=== PATIENT | male | born 1965 | race Caucasian/White ===

== ENCOUNTER → 2017-11-18 08:23 | Outpatient (CLI) | payer BC, SELFPAY ==
--- NOTE | 2017-11-18 14:39 | DI.REPORT_ITS ---
SYMPTOMS/DIAGNOSIS: ACQUIRED LUMBOSACRAL SPONDYLOLYSIS, M43.07 LUMBOSACRAL SPINE: Five views were obtained. There is a hip replacement in position on the left. There is bilateral L5 spondylolysis with spondylolisthesis of L5 on S1 estimated at 25% of the vertebral width, grossly unchanged from previous MR of October 2013. There is vacuum disc phenomenon of a narrowed intervertebral disc at this level. Otherwise, intervertebral discs are unremarkable. Mild hypertrophic spurring and vertebral endplates are noted in lower thoracic and upper lumbar spine. No compression fractures seen. CONCLUSION: Degenerative changes and chronic spondylolysis/spondylolisthesis at L5-S1 as described above.
== END ==
PROVIDERS: PCP Family Medicine; Visit Provider Family Medicine
DX: M43.07 Spondylolysis, lumbosacral region (principal); M43.17 Spondylolisthesis, lumbosacral region
CPT/HCPCS: 72110

== ENCOUNTER 2017-12-13 00:36 | Outpatient (CLI) | payer BC, SELFPAY ==
--- NOTE | 2017-12-13 09:27 | DI.MRI_ITS ---
SYMPTOM/DIAGNOSIS: LUMBOSACRAL SPONDYLOSIS m43.07, FORAMINAL STENOSIS, LBP MRI LUMBAR SPINE: Comparison is made with 20 October 2013. T1, T2 and STIR sagittal, T1 T2 axial sequences were performed. The conus medullaris appears intact. The aorta is normal in diameter. There is mild bulging of the T-12 L-1 disc. There is now mild loss of height of the L1-2 disc with mild concentric bulging. There are small end plate osteophytes projecting anteriorly. Schmorl's nodes area seen at the inferior end plate of L-1. At L2-3, there is mild broad based disc bulging. At L3-4, there is no change in disc bulging which is eccentric toward the right causing right neural foraminal narrowing. At L4-5, there is stable appearance of a small central disc herniation. There are facet degenerative changes, and mild central canal stenosis. There is mild right neural foraminal narrowing. At L5-S1 there is again noted to be Grade 1 spondylolisthesis and L5 spondylolysis as well as degenerative signal changes in the end plates. There is severe bilateral neural foraminal narrowing, unchanged. IMPRESSION: Mild interval worsening of degenerative disc changes when compared with the previous exam.
== END 2017-12-13 00:56 ==
PROVIDERS: PCP Family Medicine; Visit Provider Family Medicine
DX: M47.817 Spondylosis without myelopathy or radiculopathy, lumbosacral region (principal); M51.37 Other intervertebral disc degeneration, lumbosacral region; M54.5 Low back pain
CPT/HCPCS: 72148

== ENCOUNTER 2018-05-30 15:51 | Outpatient (REF) | payer BC, SELFPAY ==
[2018-05-30 19:02] LABS: HCT 40.5 % (40.0-50.0); HGB 13.9 g/dL (13.5-17.5); Mean Corp. HGB Concentration 34.3 g/dL (32.0-36.0); Mean Corpuscular Hemoglobin 30.5 pg (27.0-33.0); Mean Corpuscular Volume 88.8 fL (80-95); Mean Platelet Volume 11.4 fL (8.0-11.0); Platelet Count 191 x1000/uL (130-400); RBC 4.56 m/cumm (4.50-6.00); White Blood Cell Count 5.22 k/cumm (4.4-10.8)
[2018-05-30 20:53] LABS: Iron 77 ug/dL (50-175); Total Iron Binding Capacity 321 ug/dL (250-450); Transferrin Sat 24 % (20-55)
[2018-05-30 21:06] LABS: ALT 44 U/L (12-78); AST 29 U/L (15-37); Albumin 4.1 g/dL (3.4-5.0); Alkaline Phosphatase 80 U/L (46-116); Anion Gap 6.7 mmol/L (3-11); BUN 20 mg/dL (7-18); Bilirubin, Total 0.5 mg/dL (0.2-1.0); CO2 29.3 mmol/L (21.0-32.0); CREATININE 1.29 mg/dL (0.70-1.30); Calcium 9.1 mg/dL (8.5-10.1); Chloride 103 mmol/L (98-107); Estimated GFR 58.96 (mL/min/1.73m2); Ferritin 133 ng/mL (8-388); Glucose 82 mg/dL (70-100); Potassium 3.8 mmol/L (3.5-5.1); Sodium 139 mmol/L (136-145); Total Protein 7.7 g/dL (6.4-8.2)
== END 2018-05-30 16:11 ==
LOC: NCHCN 15:51
PROVIDERS: PCP Family Medicine; Visit Provider Nurse Practitioner Family
DX: R42 Dizziness and giddiness (principal); H53.8 Other visual disturbances; R41.89 Other symptoms and signs involving cognitive functions and awareness
CPT/HCPCS: 80053; 85027; 82728; 83540; 83550

== ENCOUNTER 2020-01-15 13:50 | Outpatient (REF) | payer BC, SELFPAY ==
[2020-01-15 19:13] LABS: Anion Gap 10.5 mmol/L (3-11); BUN 14 mg/dL (7-18); CO2 28.5 mmol/L (21.0-32.0); CREATININE 1.22 mg/dL (0.70-1.30); Calcium 9.1 mg/dL (8.5-10.1); Chloride 101 mmol/L (98-107); Glucose 78 mg/dL (74-106); Potassium 3.8 mmol/L (3.5-5.1); Sodium 140 mmol/L (136-145); Vitamin B12 770 pg/mL (193-986)
== END 2020-01-15 14:10 ==
LOC: NCHCN 13:50
PROVIDERS: PCP Family Medicine; Visit Provider Family Medicine
DX: Z00.00 Encounter for general adult medical examination without abnormal findings (principal); R41.89 Other symptoms and signs involving cognitive functions and awareness; I10 Essential (primary) hypertension
CPT/HCPCS: 80048; 82607; 84443

== ENCOUNTER 2021-01-15 16:38 | Outpatient (REF) | payer BC, SELFPAY ==
[2021-01-15 20:13] LABS: Anion Gap 12.7 mmol/L (3-11); BUN 16 mg/dL (7-18); CO2 25.3 mmol/L (21.0-32.0); CREATININE 1.2 mg/dL (0.70-1.30); Calcium 9.1 mg/dL (8.5-10.1); Calculated LDL 146 mg/dL (<100); Chloride 100 mmol/L (98-107); Cholesterol 224 mg/dL (<200); Glucose 94 mg/dL (74-106); HDL Cholesterol 47 mg/dL (40-60); Potassium 3.7 mmol/L (3.5-5.1); Sodium 138 mmol/L (136-145); Triglyceride 156 mg/dL (<150)
== END 2021-01-15 16:39 | disposition home or self-care (01) ==
LOC: NCHCN 16:38
PROVIDERS: PCP Family Medicine; Visit Provider Family Medicine
DX: I10 Essential (primary) hypertension (principal); Z00.00 Encounter for general adult medical examination without abnormal findings
CPT/HCPCS: 80048; 80061

== ENCOUNTER 2022-01-28 18:27 | Outpatient (REF) | payer BC, SELFPAY ==
[2022-01-28 15:34] LABS: BUN 18 mg/dL (7-18); CREATININE 1.2 mg/dL (0.70-1.30); Calcium 9.3 mg/dL (8.5-10.1); Chloride 104 mmol/L (98-107); Estimated GFR 71.86 (mL/min/1.73m2); Glucose 91 mg/dL (74-106); Magnesium 1.9 mg/dL (1.8-2.4); Sodium 139 mmol/L (136-145)
== END 2022-01-28 18:28 | disposition home or self-care (01) ==
LOC: NCHCN 18:27
PROVIDERS: PCP Family Medicine; Visit Provider Family Medicine
DX: Z00.00 Encounter for general adult medical examination without abnormal findings (principal); R25.2 Cramp and spasm
CPT/HCPCS: 80048; 83735

== ENCOUNTER 2022-11-25 11:12 | Outpatient (REF) | payer BC, SELFPAY ==
[2022-11-25 17:08] LABS: Abs Immature Grans 0.01 10^3/uL (0.0-0.06); Absolute Basophil Count 0.01 10^3/uL (0.0-0.2); Absolute Eosinophil Count 0.05 10^3/uL (0.0-0.7); Absolute Lymphocyte Count 1.05 10^3/uL (1.2-3.4); Absolute Monocyte Count 0.42 10^3/uL (0.1-0.8); Absolute Neutrophil Count 2.31 10^3/uL (1.2-6.7); Basophils % 0.3; Eosinophils % 1.3; HCT 43.5 % (40.0-50.0); HGB 14.8 g/dL (13.5-17.5); Immature Grans % 0.3; Lymphocytes % 27.3; MCV 91 fL (80-95); MPV 11.7 fL (8.0-11.0); Monocytes % 10.9; Neutrophils % 59.9; Platelet Count 198 10^3/uL (130-400); RBC 4.78 10^6/uL (4.36-5.78); RDW 11.9 % (11.8-14.1); RDW-SD 39.7 fL; WBC 3.85 10^3/uL (4.4-10.8)
[2022-11-25 17:36] LABS: ESR 8 mm/hr (0-20)
[2022-11-25 17:53] LABS: ALT 150 U/L (16-63); AST 84 U/L (15-37); Albumin 4.1 g/dL (3.4-5.0); Alkaline Phosphatase 99 U/L (46-116); Anion Gap 7.4 mmol/L (3-11); BUN 20 mg/dL (7-18); Bilirubin, Total 0.8 mg/dL (0.2-1.0); CO2 30.6 mmol/L (21.0-32.0); CREATININE 1.1 mg/dL (0.70-1.30); Calcium 9.4 mg/dL (8.5-10.1); Chloride 101 mmol/L (98-107); Estimated GFR 79.28 (mL/min/1.73m2); Glucose 87 mg/dL (74-106); Potassium 3.9 mmol/L (3.5-5.1); Sodium 139 mmol/L (136-145); Total Protein 7.5 g/dL (6.4-8.2)
== END 2022-11-25 11:13 | disposition home or self-care (01) ==
LOC: NCHCN 11:12
PROVIDERS: PCP Family Medicine; Visit Provider Family Medicine
DX: R53.81 Other malaise (principal); R53.83 Other fatigue; R79.89 Other specified abnormal findings of blood chemistry
CPT/HCPCS: 80053; 85652; 85025

== ENCOUNTER 2022-12-14 12:34 | Outpatient (REF) | payer BC, SELFPAY ==
[2022-12-14 15:04] LABS: Abs Immature Grans 0.02 10^3/uL (0.0-0.06); Absolute Basophil Count 0.02 10^3/uL (0.0-0.2); Absolute Eosinophil Count 0.09 10^3/uL (0.0-0.7); Absolute Monocyte Count 0.45 10^3/uL (0.1-0.8); Absolute Neutrophil Count 2.47 10^3/uL (1.2-6.7); Basophils % 0.4; Eosinophils % 1.9; HCT 42.2 % (40.0-50.0); HGB 14.5 g/dL (13.5-17.5); Immature Grans % 0.4; Lymphocytes % 35.8; MCHC 34.4 % (32.0-36.0); MCV 90 fL (80-95); MPV 11.9 fL (8.0-11.0); Monocytes % 9.5; Platelet Count 208 10^3/uL (130-400); RBC 4.67 10^6/uL (4.36-5.78); RDW 11.9 % (11.8-14.1); RDW-SD 39.4 fL; WBC 4.75 10^3/uL (4.4-10.8)
[2022-12-14 15:31] LABS: ALT 61 U/L (16-63); AST 35 U/L (15-37); Albumin 4.1 g/dL (3.4-5.0); Alkaline Phosphatase 92 U/L (46-116); Bilirubin, Direct 0.1 mg/dL (0.0-0.2); Bilirubin, Total 0.4 mg/dL (0.2-1.0); Total Protein 7.5 g/dL (6.4-8.2)
== END 2022-12-14 12:35 | disposition home or self-care (01) ==
LOC: NCHCN 12:34
PROVIDERS: PCP Family Medicine; Visit Provider Family Medicine
DX: D70.9 Neutropenia, unspecified (principal); R74.8 Abnormal levels of other serum enzymes
CPT/HCPCS: 80076; 85025

== ENCOUNTER 2022-12-16 08:28 | Day surgery (SDC) | payer BC, SELFPAY ==
--- NOTE | 2022-12-16 07:02 | PGE_ITS ---
Date of Service Date of service: 12/16/22 Time of Service: 10:13 Assessment and Plan Assessment and plan (1) GERD (gastroesophageal reflux disease): Status: Chronic Assessment and plan: Sean is a pleasant 57-year-old gentleman who had a bout of hematemesis after drinking too much.? I suspect he had a Melissa-Jacob tear.? He continues to have some GERD symptoms which are being helped by the as omeprazole.? I think that he does have an indication for an upper endoscopy to make sure that the Melissa- Jacob tear is healing.? At that time I can also look for ulcers or any other signs of inflammation in his stomach.? He did tell me that usually by the end of the day he feels like the as omeprazole is not in his system anymore and he starts to have more difficulty.? I have recommended that he start taking famotidine 20 mg at nighttime and hopefully that will help him until after his upper endoscopy and I have a better idea of what is going on.? We reviewed the pathophysiology of what happened as well as the procedure itself.? I went over the risks, benefits and complications in detail.? After our conversation the patient had a good understanding of both the procedure as well as the possible complications.? Risks, benefits and complications have been reviewed. Complications include but are not limited to bleeding, pain, perforation, sore throat, aspiration, and adverse reaction to the medications.? Questions were entertained and answered to their satisfaction and they wished to proceed. No guarantees were given or implied. (2) Hematemesis: Status: Acute Subjective Subjective Interval history since last seen: I saw Sean in same-day surgery today. He is doing well. He has had no more hematemesis. Is still does not feel too well on days that he eats too much. He definitely feels a different if he eats smaller meals throughout the day. But he has not had any nausea or vomiting. No other new symptoms. We again reviewed the procedure as well as the possible complications. He had no questions this morning and wished to proceed. Exam Const General: comfortable and no acute distress Nutritional Appearance: average body habitus Orientation: alert and oriented x3 Resp Effort & Inspection: normal respiratory effort Auscultation: clear to auscultation bilaterally Cardio Rate: regular rate Rhythm: regular rhythm Time Spent with Patient Time Spent with Patient: <25 minutes Time was spent: counseling the patient
--- NOTE | 2022-12-16 07:03 | PDOC.DSDIS_ITS ---
Date of service: 12/16/22 Time of Service: 10:44 Discharge Plan Disposition Patient Disposition: Home Condition: Stable Discharge Details Reason For Visit: GERD Attending Provider: Judy Rae Primary Care Provider: Juan Jose Johansen Home Meds and New Rx's Prescriptions: New sucralfate [Carafate] 1 gram tablet 1 g PO TID 14 Days Qty: 42 0RF Continued cholecalciferol (vitamin D3) 125 mcg (5,000 unit) capsule 125 mcg PO DAILY multivitamin Tablet 1 tab PO DAILY amlodipine 5 mg tablet 5 mg PO DAILY esomeprazole magnesium 40 mg capsule,delayed release(DR/EC) 40 mg PO DAILY epinephrine [EpiPen 2-Peter] 0.3 mg/0.3 mL auto-injector 0.3 mg IM Q5-15M PRN Rx Instructions: do not exceed 3 doses per episode hydrochlorothiazide 12.5 mg tablet 12.5 mg PO DAILY glucosamine HCl 1,500 mg tablet 1,500 mg PO DAILY Rx Instructions: administer with a meal Discharge Instructions Instructions: GERD (Gastroesophageal Reflux Disease) (DC) Additional Instructions: Findings: mild inflammation at the junction of the esophagus and stomach bile refluxing from the small bowel into the stomach Follow up: 2 weeks Medications: Continue esmeprazole Start carafate and take 1 tab 3 x a day for 14 days (this is to help with the reflux of bile into the stomach) Please call if you develop: fevers >101.5 Nausea or Vomiting Abdominal pain that is not transient Rectal bleeding that is more then a tbsp A hard abdomen and inability to pass gas DAY SURGERY UNIT POST ENDOSCOPY INSTRUCTIONS Instructions for everyone who is given Anesthesia: For your safety, please do the following for the next 24 Hours: a. Do not drive or operate dangerous equipment b. Do not drink alcohol beverages or use any recreational drugs for the first 24 hours or while taking pain medications. The medications in your body may have a reaction that can be dangerous. c. Do not make any important decisions or sign any important papers 1. Generally there are no restrictions on your activity after a day or so has gone by, but you may feel a bit fatigued for a few days. 2. After you arrive home you may have a light meal and return to a normal diet as you can tolerate it without feeling sick to your stomach. 3. After surgery, you may feel pain or discomfort. This should be only transient, but if it persists please contact your doctor. 4. If there are any questions regarding the findings of your procedure, please feel free to contact your doctor. 6. If you are unable to contact your doctor with a problem, contact the hospital at [phone]. 7. Continue all your regular medications unless directed otherwise. I understand the above instructions and have no questions. Signature of Patient or Responsible Adult Escort Date/Time Name of Responsible Adult Escort Signature of Nurse Date/Time Referrals: Judy Rae MD [ [facility] STAFF PHYSICIAN] - 01/01/23 11:00 am Activity:: Activity as Tolerated Diet:: As Tolerated Discharge Orders Discharge Orders: Discharge Order (Routine); Ordered 12/16/22 Ordered By: Judy Rae DS: Diagnosis Discharge Diagnosis (1) GERD (gastroesophageal reflux disease): Status: Chronic Asessment and Plan: Patient is seen and examined after their endoscopy. Patient has minimal sore throat. They have been able to tolerate liquids. They do not have any Nausea or Vomiting. They are not having any chest pain or shortness of breath. They have been able to pass gas and are not having any abdominal pain or distention. they have not vomited any blood. The vital signs have been stable-see nursing notes. We discussed findings on their endoscopy We reviewed the importance of lifestyle modifications- see diet recommendations We reviewed any new medications that the patient may be prescribed- see medicine reconciliation. Patient will either be sent a letter with the biopsy results or follow up in the office- see discharge instructions Patient was given explicit instructions for emergency follow up post endoscopy- see discharge instructions Patient verbalized understanding and was discharged in stable and satisfactory condition. See nursing notes. (2) Hematemesis: Status: Acute
--- NOTE | 2022-12-16 07:04 | W.PM.ENDDOP ---
Date of service: 12/16/22 Time of Service: 10:40 Endoscopy Report DATE OF PROCEDURE: 12/16/22 PRE-OP DIAGNOSIS: GERD, Hematemesis POST-OP DIAGNOSIS: same PROCEDURE: EGD with biopsies SURGEON: Judy Rae ANESTHESIA TYPE: General:No Airway ESTIMATED BLOOD LOSS: 25 PATHOLOGY: other (GE junction) COMPLICATIONS: None DISPOSITION: same day INDICATIONS: Sean is a pleasant 57-year-old gentleman who had a bout of hematemesis after drinking too much.? I suspect he had a Melissa-Jacob tear.? He continues to have some GERD symptoms which are being helped by the as omeprazole.? I think that he does have an indication for an upper endoscopy to make sure that the Melissa-Jacob tear is healing.? At that time I can also look for ulcers or any other signs of inflammation in his stomach.? He did tell me that usually by the end of the day he feels like the as omeprazole is not in his system anymore and he starts to have more difficulty.? I have recommended that he start taking famotidine 20 mg at nighttime and hopefully that will help him until after his upper endoscopy and I have a better idea of what is going on.? We reviewed the pathophysiology of what happened as well as the procedure itself.? I went over the risks, benefits and complications in detail.? After our conversation the patient had a good understanding of both the procedure as well as the possible complications.? Risks, benefits and complications have been reviewed. Complications include but are not limited to bleeding, pain, perforation, sore throat, aspiration, and adverse reaction to the medications.? Questions were entertained and answered to their satisfaction and they wished to proceed. No guarantees were given or implied. FINDINGS: mild inflammation of the GE junction PROCEDURE DESCRIPTION: After informed consent was obtained the patient was take to the procedure room and placed in a supine position. Monitors were applied and a time out was done. The patients name, date of , procedure type, allergies to medications and metal in their body was reviewed. A bite block was placed and the patient was sedated. Once sedated and comfortable the gastroscope was advanced through the oropharynx which was grossly normal into the esophagus. The proximal and mid-esophagus were normal. In the distal esophagus there was mild inflammation noted. The scope was advanced into the stomach and through the pylorus into the 3rd portion of the duodenum. The duodenum was noted to be normal. The scope was retracted back into the stomach. Bile was noted within the stomach. There was no inflammation or ulcers noted. The scope was retroflexed. The cardia and fundus were noted to be normal. There was no hiatal hernia noted. The scope was retracted back into the esophagus and biopsies were done of the GE junction to rule out Clarke's. The Z line was regular. The GE junction was at 38 cm. The scope was removed and the patient was woken up and taken back to [facility] in stable condition. Follow up: 2 weeks
[2022-12-16 08:39] VITALS: BP 142/95; PULSE 70; RESP 18; TEMP 36.6; O2SAT 98
[2022-12-16] MEDS: Lactated Ringers 1,000 ML 80 ML IV (09:04)
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
[2022-12-16 09:33] VITALS: BMI 27.6
--- NOTE | 2022-12-16 10:24 | ESO_PTH ---
PATIENT: Sean Wiseman LOC: [facility] U#:[id number] AGE/SX: 57/M ROOM: RE12/16/[address]: Judy Rae MD : [id number] BED: DIS: 12/16/2022 SPEC #: [id number] RECD: 12/16/22 12:28 STATUS: NAN REJoe #: [id number] JUAN: 12/16/22 10:[address]: Judy Rae DEPT: Surgical Specimen RECD BY: Cristina Garcia ENTERED: 12/16/22 12:29 SP TYPE: Eso OTHR DR: Juan Jose Johansen Tissues: 1 - ESOPHAGUS BIOPSY Procedures: GROSS AND MICRO LEVEL 4 Comments: [id number]
[2022-12-16 10:33] VITALS: BP 119/82; PULSE 76; RESP 17; TEMP 36.6; O2SAT 97
[2022-12-16 11:03] VITALS: BP 122/90; PULSE 62; RESP 17; TEMP 36.5; O2SAT 99
--- NOTE | 2022-12-16 14:48 | W.ANESPOSTOP ---
Postoperative Evaluation Date, Time and Location Date Performed: 12/16/22 Time Performed: 14:48 Patient Location: Day Surgery Unit Vital Signs Most Recent Imported Vital Signs: Most Recent Vital Signs Temp Pulse Resp BP Pulse Ox 36.5 C 62 17 122/90 99 12/16/22 11:03 12/16/22 11:03 12/16/22 11:03 12/16/22 11:03 12/16/22 11:03 Pain Score Most Recent Pain Score: Most Recent Pain Score Pain Level 0 12/16/22 11:03 Assessment Mental Status: Awake (Alert & Oriented to Patient Baseline) Airway and Respiratory Function: Patent airway with normal (patient baseline) respiratory exam Cardiovascular Function: Hemodynamically Stable Hydration Status: Adequately Hydrated Nausea & Vomiting: No Nausea or Vomiting Pain: Pt. Denies Any Pain Peripheral Nerve Block: Patient did not receive a nerve block
== END 2022-12-16 11:17 | disposition home or self-care (01) ==
PROVIDERS: PCP Family Medicine; Visit Provider Surgery
PROC: 0DJ68ZZ Inspection of Stomach, Via Natural or Artificial Opening Endoscopic (ICD-10-PCS; CPT 43235; principal; 2022-12-16 10:00)
DX: K21.9 Gastro-esophageal reflux disease without esophagitis (principal); K92.0 Hematemesis; R10.13 Epigastric pain; R13.10 Dysphagia, unspecified; K22.89 Other specified disease of esophagus
CPT/HCPCS: 43239; 88305; J2405; J2704

== ENCOUNTER 2023-04-22 12:42 | Outpatient (REF) | payer BC, SELFPAY ==
[2023-04-22 15:48] LABS: ALT 75 U/L (16-63); AST 37 U/L (15-37); Albumin 4.3 g/dL (3.4-5.0); Alkaline Phosphatase 93 U/L (46-116); Anion Gap 7.9 mmol/L (3-11); BUN 17 mg/dL (7-18); Bilirubin, Total 0.8 mg/dL (0.2-1.0); CO2 30.1 mmol/L (21.0-32.0); CREATININE 1.3 mg/dL (0.70-1.30); Calcium 9.5 mg/dL (8.5-10.1); Chloride 103 mmol/L (98-107); Estimated GFR 64.88 (mL/min/1.73m2); Glucose 88 mg/dL (74-106); Potassium 3.6 mmol/L (3.5-5.1); Sodium 141 mmol/L (136-145); Total Protein 7.8 g/dL (6.4-8.2)
[2023-04-23 00:24] LABS: PSA, Screening 0.6 ng/mL (<=3.5)
== END 2023-04-22 12:43 | disposition home or self-care (01) ==
LOC: NCHCN 12:42
PROVIDERS: PCP Family Medicine; Visit Provider Family Medicine
DX: R74.8 Abnormal levels of other serum enzymes (principal); Z12.5 Encounter for screening for malignant neoplasm of prostate
CPT/HCPCS: 80053; 84153

== ENCOUNTER 2024-05-22 15:15 | Outpatient (REF) | payer BC, SELFPAY ==
[2024-05-22 19:23] LABS: ALT 35 U/L (16-63); AST 28 U/L (15-37); Albumin 4.1 g/dL (3.4-5.0); Alkaline Phosphatase 85 U/L (46-116); BUN 30 mg/dL (7-18); Bilirubin, Total 0.42 mg/dL (0.2-1.0); CREATININE 1.1 mg/dL (0.70-1.30); Calcium 9.5 mg/dL (8.5-10.1); Calculated LDL 111 mg/dL (<100); Chloride 106 mmol/L (98-107); Cholesterol 175 mg/dL (<200); Estimated GFR 78.79 (mL/min/1.73m2); Glucose 79 mg/dL (74-106); HDL Cholesterol 47 mg/dL (40-60); Potassium 4.2 mmol/L (3.5-5.1); Sodium 143 mmol/L (136-145); Triglyceride 88 mg/dL (<150)
== END 2024-05-22 15:16 | disposition home or self-care (01) ==
LOC: NCHCN 15:15
PROVIDERS: PCP Family Medicine; Visit Provider Student in an Organized Health Care Education/Training Program
DX: E78.5 Hyperlipidemia, unspecified (principal); R74.01 Elevation of levels of liver transaminase levels
CPT/HCPCS: 80053; 80061

== ENCOUNTER 2024-08-02 11:16 | Outpatient (CLI) | payer BC, SELFPAY ==
--- NOTE | 2024-08-02 08:30 | DI.RAD_ITS ---
Exam(s) XR KNEE LT 4V AP,LAT,STEFFEN,PAT EXAM: XR KNEE LT 4V AP,LAT,STEFFEN,PAT CLINICAL HISTORY: LEFT KNEE PAIN. TECHNIQUE: 2D digital imaging was performed. Three views. COMPARISON: No exams were available for comparison FINDINGS: BONES: No acute fracture is present. No bony destructive lesion is seen. Enthesophyte at the tibia l tubercle. JOINTS: There is moderate to severe narrowing of the medial femoral tibial joint space. There is mod erate severe narrowing of the patellofemoral joint. There is periarticular spurring throughout. Cho ndrocalcinosis is present. There is a joint space loose body in the suprapatellar region measuring 2 .2 cm. A small joint effusion is seen. SOFT TISSUE: Normal. IMPRESSION: Advanced degenerative changes and joint space loose body. DATA REPOSITORY: RADIATION DOSE DELIVERED:
== END 2024-08-02 11:17 | disposition home or self-care (01) ==
LOC: DIORS 11:17
PROVIDERS: PCP Student in an Organized Health Care Education/Training Program; Visit Provider Physician Assistant
DX: M25.562 Pain in left knee (principal); M17.32 Unilateral post-traumatic osteoarthritis, left knee
CPT/HCPCS: 73564

== ENCOUNTER 2024-11-27 08:29 | Outpatient (CLI) | payer BC, SELFPAY ==
--- NOTE | 2024-11-27 08:00 | DI.RAD_ITS ---
Exam(s) XR KNEE LT 1V XR STANDING ALIGNMENT EXAM: XR STANDING ALIGNMENT and XR knee LT 1 V CLINICAL HISTORY: left knee DJD. TECHNIQUE: 2D digital imaging was performed. Five images were obtained. COMPARISON: CR LUMBAR SPINE COMPLETE from 11/18/2017 CR XR KNEE LT 4V AP,LAT,STEFFEN,PAT from 08/02/2024 FINDINGS: BONES: There again seen postsurgical changes of a left total hip arthroplasty. Old healed left femoral fracture is noted. The right hip is well maintained. The right knee is well maintained. In the left knee there is mild narrowing of the joint space predominantly medially. Osteophytes are seen medially and laterally. There is marked narrowing of the patellofemoral joint with osteophytes present. There is a joint effusion present. There is an osseous density superior to the patellofemoral joint which may represent a loose body. There is an enthesophyte at the patella. Chondrocalcinosis is seen in the femoral tibial joint. The ankles are well maintained.There is no significant leg length discrepancy. SOFT TISSUE: Mild atherosclerotic calcification is present in the left lower extremity. IMPRESSION: Marked osteoarthritis of the left knee. DATA REPOSITORY: RADIATION DOSE DELIVERED:
== END 2024-11-27 08:30 | disposition home or self-care (01) ==
LOC: DIORS 08:29
PROVIDERS: PCP Student in an Organized Health Care Education/Training Program; Visit Provider Physician Assistant
DX: M17.32 Unilateral post-traumatic osteoarthritis, left knee (principal)
CPT/HCPCS: 73560; 77073

== ENCOUNTER 2024-11-27 16:09 | Outpatient (REF) | payer BC, SELFPAY ==
[2024-11-27 10:14] LABS: HCT 44.6 % (40.0-50.0); HGB 15.0 g/dL (13.5-17.5); MCH 30.8 pg (27.0-33.0); MCHC 33.6 % (32.0-36.0); MCV 92 fL (80-95); MPV 11.0 fL (8.0-11.0); Platelet Count 188 10^3/uL (130-400); RBC 4.87 10^6/uL (4.36-5.78); RDW 11.9 % (11.8-14.1); RDW-SD 40.3 fL; WBC 4.98 10^3/uL (4.4-10.8)
[2024-11-27 11:08] LABS: Anion Gap 9.7 mmol/L (3-11); BUN 18 mg/dL (7-18); CO2 29.3 mmol/L (21.0-32.0); Calcium 9.7 mg/dL (8.5-10.1); Chloride 102 mmol/L (98-107); Estimated GFR 70.53 (mL/min/1.73m2); Glucose 98 mg/dL (74-106); Potassium 3.8 mmol/L (3.5-5.1); Sodium 141 mmol/L (136-145)
== END 2024-11-27 16:10 | disposition home or self-care (01) ==
LOC: LBN 16:09
PROVIDERS: PCP Student in an Organized Health Care Education/Training Program; Visit Provider Student in an Organized Health Care Education/Training Program
DX: M17.32 Unilateral post-traumatic osteoarthritis, left knee (principal); Z01.818 Encounter for other preprocedural examination
CPT/HCPCS: 80048; 85027

== ENCOUNTER 2024-12-06 07:15 | Day surgery (SDC) | payer BC, SELFPAY ==
[2024-12-06] VITALS (23 sets, daily range): BP systolic 102–173; BP diastolic 64–102; PULSE 61–87; RESP 12–20; TEMP 36.1–36.7; O2SAT 94–100; BMI 27.4
--- NOTE | 2024-12-06 07:13 | PDOC.DSDIS_ITS ---
Date of service: 12/06/24 Discharge Plan Disposition Patient Disposition: Home Condition: Good Discharge Details Reason For Visit: L TKR Attending Provider: Ravi Amezquita Primary Care Provider: Robin Robertson Home Meds and New Rx's Prescriptions: New acetaminophen 500 mg tablet 1,000 mg PO TID Qty: 90 3RF aspirin 81 mg tablet,delayed release (DR/EC) 81 mg PO BID Qty: 60 0RF celecoxib 200 mg capsule 200 mg PO BID Qty: 60 0RF dexamethasone 4 mg tablet 4 mg PO DAILY Qty: 2 0RF docusate sodium 100 mg capsule 100 mg PO BID PRNQty: 28 0RF pantoprazole 40 mg tablet,delayed release (DR/EC) 40 mg PO DAILY Qty: 14 0RF gabapentin 300 mg capsule 300 mg PO QHS Qty: 14 0RF oxycodone 5 mg tablet 5 mg PO Q4H PRNQty: 18 0RF Continued cholecalciferol (vitamin D3) 125 mcg (5,000 unit) capsule 125 mcg PO DAILY multivitamin Tablet 1 tab PO DAILY amlodipine 5 mg tablet 5 mg PO DAILY epinephrine [EpiPen 2-Peter] 0.3 mg/0.3 mL auto-injector 0.3 mg IM Q5-15M PRN Patient Comments: Pt. states he has an autoimmune condition where hives randomly show up in his throat. has not happened for >1 yr 12/01/24 Rx Instructions: do not exceed 3 doses per episode hydrochlorothiazide 12.5 mg tablet 12.5 mg PO DAILY Discharge Instructions Additional Instructions: Total Knee Discharge Instructions Activity: The most important activity is to walk and to work on gentle motion (both flexion and extension). You should try to take short walks a few times a day. It is important that when resting you work on keeping the knee straight. Avoid putting a pillow behind the knee as this will encourage flexion. Work on range of motion exercises as provided by Physical Therapy. - Start outpatient physical therapy within 2 weeks. - You should wear the RAMOS hose on both legs for 2 weeks. You may remove these at night. You may also use any compression sock in place of the RAMOS hose. - Utilize [employer] to review exercises, see videos on exercises and obtain basic information pertaining to your surgery and your recovery. Dressing: Remove the Skyler wrap by 2 days after your surgery and put on the RAMOS stocking given to you from the hospital. Keep the surgical dressing (underneath the SKYLER wrap) in place for at least one week. After the first week it may be removed and replaced with light gauze and tape or nothing. The wound and dressing may get wet after 3 days but avoid soaking the dressing or otherwise it will need to be changed. Many people prefer covering the dressing with cling wrap (saran wrap) to minimize it from getting soaked. If it gets wet, just pat dry. If it starts to peel off then it will need to be changed. Medications: - You should take Tylenol and anti-inflammatory Celebrex as your primary pain control medications. If the Celebrex is too expensive or not covered, please call the office for another alternative (Advil/Ibuprofen or Naproxen/Aleve) - You have been prescribed a stronger pain medication Oxycodone for breakthrough pain, take as needed as prescribed. - You have also been prescribed a stomach acid reduction agent Pantoprozole to help reduce stomach acid and reflux. - You have been prescribed Gabapentin to take at night for restlessness and nerve pain. - You will be taking Aspirin 81mg twice a day for DVT prevention unless instructed otherwise. - You have also been prescribed Decadron to take to control post-operative nausea and pain. You will start this tomorrow. - If you have constipation you should take Colace or Miralax (both [id number]). It takes most people 3-4 days to have a bowel movement. Follow-up: 2 weeks If you have any acute concerns or questions, please do not hesitate to contact the office at [phone]. You may contact Dr. Amezquita with any questions after hours through the hospital at [phone] or on his cell phone at [phone]. Referrals: Ravi Amezquita MD [ [facility] STAFF PHYSICIAN, Orthopaedic Surgical] Equipment/Supplies: Walker Activity:: Activity as Tolerated Shower/Bathe:: 72 hours Diet:: As Tolerated Discharge Orders Discharge Orders: Discharge Order (Routine); Ordered 12/06/24 Ordered By: Marlon Shell DS: Diagnosis Discharge Diagnosis (1) Post-traumatic osteoarthritis of left knee: Status: Acute
[2024-12-06] MEDS: Gabapentin 300 MG CAP PO (07:54)
[2024-12-06] MEDS: Acetaminophen 500 MG TAB 1000 MG PO (07:54)
[2024-12-06] MEDS: Celecoxib 200 MG CAP 400 MG PO (07:56)
[2024-12-06] MEDS: Lactated Ringers 1,000 ML 80 ML IV (08:13)
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
[2024-12-06] MEDS: ceFAZolin 2 GM/50 ML BAG IVPB (08:39)
[2024-12-06] MEDS: TRANEXAMIC ACID/SOD. CHL. 1,000 MG/100 ML BAG 600 MG IVPB (08:52)
--- NOTE | 2024-12-06 09:07 | W.ANESNERVE ---
Nerve Block Single Injection Procedure Date and Time Date Performed: 12/06/24 Procedure Start: 08:30 Location Where Procedure Performed Procedure Location: Day Surgery Unit Reason Performed: Postoperative Analgesia Requesting Provider: Ravi Amezquita Timeout Performed Timeout Performed: Yes Monitoring Used ECG, Blood Pressure, SpO2 and See EMR for corresponding vital signs Sterility Sterility: Hand Hygiene, Surgical Cap, Surgical Mask, Sterile Gloves and Chlorhexidine Sedation Given During Procedure Sedation Given (Indicate Dose Given): No Sedation given Patient Mental Status Patient Mental Status: Awake Nerve Block 1st Nerve Block: Laterality: Left Block Type: Adductor Canal Ultrasound Image Saved?: Yes Needle / Catheter Used: 100mm SonoPlex II Local Anesthetic Bolus (Indicate Dose Given): Lidocaine used for local infiltration of skin, Injected in 3-5ml increments after negative blood aspiration, Bupivacaine 0.5% Dose:: 10ml and Exparel Dose:: 10ml Additives (Indicate Dose Given): None Ultrasound: Sterile probe cover and gel used Nerve Stimulator: Not Used Paresthesia: None Procedure Tolerated: No Complications and Patient tolerated well Procedure Outcome: Successful Performed By: Bakari Genao
--- NOTE | 2024-12-06 10:46 | W.PM.OP ---
Operative Note Operative Note PRE-OP DIAGNOSIS: Left Knee Osteoarthritis POST-OP DIAGNOSIS: same PROCEDURE: Left Total Knee Replacement with Intraoperative Navigation SURGEON: Ravi Amezquita DRAWING BOX TENDER: Asa Shell ANESTHESIA TYPE: Spinal Refer to Anesthesia Record ESTIMATED BLOOD LOSS: 100 PATHOLOGY: none sent TOURNIQUET TIME: 0 COMPLICATIONS: None Patient was transported to: PACU Patient's condition: stable Implants: 1. Depuy Attune Cementless Cruciate Retaining Femoral Component, Size 8 2. Depuy Attune Cementless Fixed Bearing Tibial Component, Size 7 3. Depuy Attune 8x7mm CR/FB Poly 4. Depuy Attune Patellar Component, Size 41 mm Indications: I have seen Sean in clinic for symptoms of post-traumatic LEFT knee arthritis, confirmed with radiographic findings. Sean has exhausted nonoperative methods and was having significant limitations in daily function and desired better function and less pain. I discussed the technical details of a knee replacement. I explained the risks of the procedure to include, but not limited to, bleeding, infection, pain, stiffness, fracture, damage to nerves and vessels, damage to muscles and tendons, loosening, need for repeat procedure, blood clot and cardiopulmonary demise. Despite these risks, he elected to proceed. Findings: There was significant signs of arthritis throughout the knee, worse about the medial compartment. There is deformity of the patella. There is also significant scarring within the knee which made exposure challenging and required additional releases for balancing of the knee. Procedure Description: Sean was greeted in the preoperative holding area where the correct side was identified and marked. The consent was reviewed with the patient and signed. The history and physical was updated. All questions were answered. Preoperative mediacations were administered: Acetaminophen 1000mg, Celebrex 400mg, and Gabapentin 300mg. An adductor canal block was then administered by the anesthesia team in the DSU. He was taken back to the operating room. A spinal anesthestic was then administered. The patient was placed into the supine position on the operating room table. Posts were placed for positioning during the procedure. All bony prominences were well padded. Prophylactic antibiotics in the form of Cefazolin were administered. 1g of Tranxemic Acid was given intravenously within 30 minutes of incision. The left leg was then prepped with Chloraprep and draped in a standard fashion with impervious stockinette. A second prep with Chloraprep was performed prior to application of Iodine impregnated skin protection. A timeout to confirm correct identity, side and site, procedure, allergies, anesthesia, and medical concerns was performed. With the knee in some flexion, a midline incision was made overlying the knee. Full thickness skin flaps were raised once the extensor mechanism was encountered. These were raised medially and laterally. Any bleeding was controlled with electrocautery. Once the extensor mechanism was fully exposed, a medial parapatellar arthrotomy was performed in a flexed position. All bleeding from the arthrotomy and the geniculate arteries was coagulated. A medial subperiosteal peel was performed with electrocautery to the midcoronal plane. Due to the significant varus deformity the entire medial tibial plateau was exposed. The fat pad was removed while keeping the patellar tendon protected. The anterior distal femur synovium was removed for later visualization. The ACL and PCL were resected and the anterior horn of the lateral meniscus was transected. The knee was then flexed with the patella everted. Large osteophytes from the tibia were removed. Large osteophytes from the femur were removed. The medial tissues were quite adherent to the medial tibia and made exposure challenging and thus some time was taken to remove the osteophytes from the medial femur medial tibia and release the capsular attachments and adhesions to the proximal aspect of the medial tibia all the way to the posterior medial corner of the tibial plateau. A single starting pin was then placed 1cm anterior to the PCL insertion and the notch in the direction of the femoral head. The OrthoAlign device was applied over the pin. It was oriented to be in line with the epicondylar axis and the trochlear groove. It was then pinned into place. The navigation computer was then turned on and calibrated. The distal femur cut was set at 0 degrees varus and 3 degrees flexion. The distal femur cutting guide then was positioned for a 9mm cut. The distal femur was cut with an oscillating saw while protecting the soft tissues. The tibia was then addressed. The OrthoAlign device was placed over the tibial tubercle and medial tibia and secured into position. Once again, OrthoAlign was calibrated and then set for a 2 degree varus cut and 5 degrees of posterior slope. With this locked into position, the cut thickness stylus was used to assess cut thickness. The medial side, most involved side, was set for a 4mm cut. This was then held in position and pinned into place with 2 additional pins and a cross pin for stability. The medial and lateral collateral ligaments were protected and the cut was performed. With this completed, it was assessed and noted to be of appropriate dimensions. The guide and OrthoAlign was removed. A spacer block was inserted and the knee was brought into extension to ensure enough space was present. . The Orthoalign gap balancing device was then placed in extension. This was used to ensure that the ligaments were properly balanced with up to 2 to 3 mm laxity laterally compared medially. The extension gap was measured as 19mm. The knee was then brought into 90 degrees of flexion and the ligament product consultant was once again placed. Under the same amount of force the flexion gap was measured. The Attune specific jig was placed and the flexion gap was made to match the extension gap. The femur was then sized as a size 8. The 4-in-1 cutting guide was the placed. An gavin wing was used to confirm appropriate position of the anterior cut to avoid notching. This cutting guide was ensured to be flush on the cut surface and then pinned into place with headed pins. While protecting the soft tissues, quad tendon, and collateral ligaments, the anterior and posterior cuts were performed with a saw. The central two pins were removed and the posterior and anterior chamfers were cut next. The notch-cutting guide was placed. This was pinned to lateralize the femoral component as much as possible while keeping it flush on the cut surface. This was then pinned into position. A saw was used to make the notch cut. A rasp smoothed the cut surfaces. The medial and lateral menisci were removed. A trial femoral component was then inserted, impacted down to the cut surfaces, and the lug holes were drilled. A provisional trial tibial component was placed and the knee was brought through range of motion. The polyethylene was trialed until there was good flexion and extension with excellent stability to the medial and lateral collaterals. The patella was tracking without thumbs. A size 7mm polyethylene component provided the best range of motion and stability with less than 2mm gapping with medial and lateral stress and full extension without significant hyperextension. The tibial cut surface was fully exposed. The tibia was then sized as a 7. The tibia had been previously marked during trialing to correspond to the center of the tibial component to help with rotation. The trial was aligned to this asa, approximately rotated to the medial 1/3rd of the tibial tubercle. The trial was pinned into place. The tibia was prepared with a reamer and a keel punch and lug holes. The knee was then brought into extension and the patella was measured as 34mm. Using a freehand technique, this was resected to a flat surface with at least 13mm of thickness remaining. The size 41mm patella fit the best. This was oriented and then clamped into position. The lugs were drilled. The trial components were removed. The final components were opened on the back table. The periosteal and capsular tissues, especially posteriorly, around the knee were then systematically injected with a periarticular cocktail consisting of 246mg of Ropivacaine, 0.5mg of Epinephrine, 0.08mg of Clonidine, and 30mg of Ketorolac, diluted to 100cc. On the back table, with the implants opened, the cement was mixed. One batch of high viscosity cement was prepared with vacuum assistance. After the cement was ready a small amount was placed on the cut surface of the patella and the patellar button was clamped into position and held. Then, the knee components were placed. Starting with the tibial component, the tibia was subluxed anteriorly and the lug holes of the component were lined up. The tibia was then impacted with an impactor and mallet until the tibial component was in contact with the tibia. Then, the femoral component was inserted. The lug holes were aligned and the component was impacted into position. The final polyethylene component was inserted. The knee was irrigated with Surgiphor Betadine solution. This was allowed to sit in the knee for 3 minutes and then it was thoroughly irrigated out with saline. After the cement had finally cured, approximately 15min, the clamp was removed from the patella. The knee was then taken through range of motion. The patella was tracking with a no-thumbs technique. A complete synovectomy of the patella was performed. Any prominence to the lateral facet was resected with a rongeur. The capsule was then reapproximated with a No. 1 Vicryl at multiple locations. The capsule was finally closed with a No. 2 Stratafix, barbed suture. Deep tissues were then reapproximated with 0 Vicryl and 2-0 Vicryl. The skin was closed with a running 3-0 Monocryl in a subcuticular fashion. This was reinforced with skin glue. A Mepilex silver dressing was applied along with a [id number] MASSIMO wrap. A CryoCuff was applied. Sean was transferred to the hospital bed without difficulty an suffering no apparent complication. He has a good prognosis. Physical therapy will start today and without restrictions, weight-bearing as tolerated. Aspirin 81mg BID will be used for DVT prophylaxis. Date of Procedure: 12/06/24
[2024-12-06] MEDS: oxyCODONE 5 MG TAB PO (11:57)
[2024-12-06] MEDS: Tranexamic Acid 650 MG TAB 1300 MG PO (12:28)
--- NOTE | 2024-12-06 12:53 | W.ANESPOSTOP ---
Postoperative Evaluation Date, Time and Location Date Performed: 12/06/24 Time Performed: 12:15 Patient Location: Day Surgery Unit Vital Signs Most Recent Imported Vital Signs: Most Recent Vital Signs Temp Pulse Resp BP Pulse Ox 36.1 C L 71 16 158/88 H 97 12/06/24 12:10 12/06/24 12:10 12/06/24 12:10 12/06/24 12:10 12/06/24 12:10 Pain Score Most Recent Pain Score: Most Recent Pain Score Pain Level 4 12/06/24 12:15 Assessment Mental Status: Awake (Alert & Oriented to Patient Baseline) Airway and Respiratory Function: Patent airway with normal (patient baseline) respiratory exam Cardiovascular Function: Hemodynamically Stable Hydration Status: Adequately Hydrated Nausea & Vomiting: No Nausea or Vomiting Pain: Pain is tolerable per patient Peripheral Nerve Block: Regional nerve block not resolved at time of post operative discharge
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
== END 2024-12-06 14:33 | disposition home or self-care (01) ==
LOC: SUR 07:15
PROVIDERS: PCP Student in an Organized Health Care Education/Training Program; Visit Provider Student in an Organized Health Care Education/Training Program
PROC: (CPT 27447; principal; 2024-12-06 09:30)
DX: M17.32 Unilateral post-traumatic osteoarthritis, left knee (principal); G89.18 Other acute postprocedural pain
CPT/HCPCS: 27447; 20985; 64447; 97110; 97161; C1776; J0665; J0666; J0690; J1100; J2250; J2401; J2405; J2704

== ENCOUNTER 2024-12-21 14:02 | Outpatient (CLI) | payer BC, SELFPAY ==
--- NOTE | 2024-12-21 08:00 | DI.RAD_ITS ---
Exam(s) XR KNEE LT 1V XR STANDING ALIGNMENT EXAM: XR STANDING ALIGNMENT and XR knee LT 1 V CLINICAL HISTORY: 1ST POST OP S/P L TKA. TECHNIQUE: 2D digital imaging was performed. Five images were obtained. COMPARISON: CR XR KNEE LT 1V from 11/27/2024 CR XR STANDING ALIGNMENT from 11/27/2024 FINDINGS: BONES: There are stable postsurgical changes of a left total hip arthroplasty. There is an old healed left femoral fracture again noted. The right hip is unremarkable. Since the prior examination the patient has undergone a left total knee arthroplasty. Orthopedic hardware appears in good position. No suspicious lucencies are seen in or about the orthopedic hardware. There is a joint effusion present. The right knee is well maintained. The ankles are well maintained.There is no significant leg length discrepancy. SOFT TISSUE: Normal. IMPRESSION: Interval placement of a left total knee arthroplasty. DATA REPOSITORY: RADIATION DOSE DELIVERED:
== END 2024-12-21 14:03 | disposition home or self-care (01) ==
LOC: DIORS 14:03
PROVIDERS: PCP Student in an Organized Health Care Education/Training Program; Visit Provider Physician Assistant
DX: Z96.652 Presence of left artificial knee joint (principal)
CPT/HCPCS: 73560; 77073

== ENCOUNTER 2025-03-05 10:43 | Outpatient (CLI) | payer BC, SELFPAY ==
[2025-03-05 09:15] LABS: Anion Gap 7.4 mmol/L (3-11); BUN 17 mg/dL (9-23); CO2 28.6 mmol/L (20.0-31.0); Calcium 9.5 mg/dL (8.3-10.6); Chloride 102 mmol/L (98-107); Glucose 99 mg/dL (74-106); Potassium 3.7 mmol/L (3.5-5.1); Sodium 138 mmol/L (136-145)
[2025-03-05 09:18] LABS: Vitamin D 25 Total 87 ng/mL (30-100)
== END 2025-03-05 10:44 | disposition home or self-care (01) ==
LOC: LBO 10:43
PROVIDERS: PCP Student in an Organized Health Care Education/Training Program; Visit Provider Student in an Organized Health Care Education/Training Program
DX: I10 Essential (primary) hypertension (principal); E55.9 Vitamin D deficiency, unspecified
CPT/HCPCS: 36415; 80048; 82306